=== PATIENT | female | born 1960 | race Asian ===

== ENCOUNTER → 2018-09-13 15:12 | Outpatient (CLI) | payer OTHER, SELFPAY | PROVIDERS: PCP Family Medicine; Visit Provider Family Medicine | DX: Z92.89 Personal history of other medical treatment (principal) | CPT/HCPCS: 77080 ==

== ENCOUNTER → 2018-09-30 09:14 | Outpatient (CLI) | payer OTHER, SELFPAY ==
[2018-09-30 10:55] LABS: Cholesterol 226 mg/dL (140-199); Glucose 93 mg/dL (70-100); HDL Cholesterol 59 mg/dL (40-60); LDL Cholesterol Calculated 150 mg/dL (<100); Triglycerides 85 mg/dL (35-150)
== END ==
PROVIDERS: PCP Family Medicine; Visit Provider Family Medicine
DX: Z13.220 Encounter for screening for lipoid disorders (principal); Z13.1 Encounter for screening for diabetes mellitus
CPT/HCPCS: 36415; 80061; 82947

== ENCOUNTER → 2018-10-07 14:41 | Outpatient (CLI) | payer OTHER, SELFPAY ==
--- NOTE | 2018-10-07 14:43 | DI.MG.S_ITS ---
BILATERAL DIGITAL SCREENING MAMMOGRAM 3D/2D WITH CAD: 10/07/2018 CLINICAL: Routine screening. Comparison is made to exams dated: 02/26/2017 mammogram, 07/21/2015 mammogram, and 11/28/2010 mammogram - [facility]. The tissue of both breasts is heterogeneously dense. This may lower the sensitivity of mammography. Current study was also evaluated with a Computer Aided Detection (CAD) system. No significant masses, calcifications, or other findings are seen in either breast. There has been no significant interval change. IMPRESSION: NEGATIVE There is no mammographic evidence of malignancy. A 1 year screening mammogram is recommended. This exam was interpreted at Station ID: [id number]. NOTE: For mammograms, a report in lay terms will be sent to the patient. Approximately 15% of breast malignancies will not be visualized mammographically. In the management of a palpable breast mass, a negative mammogram must not discourage biopsy of a clinically suspicious lesion. Electronically Signed By: Wu holden/harriet:10/07/2018 17:20:20 letter sent: Normal Exam ACR BI-RADS Category 1: Negative 3341F
== END ==
PROVIDERS: PCP Family Medicine; Visit Provider Family Medicine
DX: Z12.31 Encounter for screening mammogram for malignant neoplasm of breast (principal)
CPT/HCPCS: 77063; 77067

== ENCOUNTER 2018-10-11 06:43 | Day surgery (SDC) | payer OTHER, SELFPAY ==
[2018-10-11] VITALS (7 sets, daily range): BP systolic 101–128; BP diastolic 65–74; PULSE 49–81; RESP 9–16; TEMP 36.3–36.8; O2SAT 88–100; BMI 22.6
--- NOTE | 2018-10-11 | PATH_ITS ---
[facility] Accession Number: [id number] . 01 Material submitted: . PART A: PROBABLE GASTRIC FUNDIC POLYPS PART B: GE JUNCTION BIOPSY . 02 Diagnosis: A. Gastric Polyps, Biopsies: Fragments of fundic gland polyp. No evidence of Helicobacter organisms on H/E stain. Negative for intestinal metaplasia, dysplasia or malignancy. . B. Gastroesophageal Junction, Biopsy: Squamocolumnar junctional mucosa with mild reactive features of reflux esophagitis. Negative for specialized intestinal metaplasia, dysplasia or malignancy. . I/10/14/2018 . 02 Electronically signed: . Michael Murillo MD, PhD, Pathologist NPI- [id number] . 01 Gross description: . Part A: PROBABLE GASTRIC FUNDIC POLYPS: Received in formalin are multiple fragment(s) of carrillo, soft tissue measuring 0.5 x 0.4 x 0.2 cm in aggregate submitted entirely in 1 cassette(s) Part B: GE JUNCTION BIOPSY: Received in formalin are multiple fragment(s) of carrillo, soft tissue measuring 0.8 x 0.3 x 0.2 cm in aggregate submitted entirely in 1 cassette(s) /CKI /CKI . 02 Pathologist provided ICD-10: K31.7, K21.0 . 02 CPT . 191091, 671971 Performed at: 01 [facility] [address], [place], [place] [id number] MD Wu Bergeron MD Phone: [phone] Performed at: 02 [facility] [address] [place], [place] [id number] MD Justyna Rush MD Phone: [phone]
[2018-10-11] MEDS: SODIUM CHLORIDE 0.9% 1,000 ML 200 ML IV (07:32)
--- NOTE | 2018-10-11 08:18 | PM.PREOP ---
Pre-operative Note Interval Note History & Physical reviewed/Exam performed by Physician: Yes Changes to H&P: No H&P completed within 30 days and has changed as indicated here:: History and physical done 1-19 +today ASA Class (for procedural sedation): I
[2018-10-11] MEDS: TETRACAINE/BENZOCAINE/BUTAMBEN (CETACAINE) BOTTLE 1 SPRAY TOP (08:22)
[2018-10-11] MEDS: LIDOCAINE 4% SOLN 50 ML 20 ML TOP (08:23)
[2018-10-11] MEDS: fentaNYL 250 MCG/5 ML INJ IV (08:35)
[2018-10-11] MEDS: MIDAZOLAM 5 MG/5 ML VIAL IV (08:36)
--- NOTE | 2018-10-11 08:51 | PM.OP.ENDO ---
Operative Date/Time/Diagnoses Date of procedure: 10/11/18 Time of procedure: 08:36 Pre-op diagnosis: History of gastric ulcer Post-op diagnosis: same (Ulcer has healed. Possible Ball's esophagus. Gastric fundic polyps.) Procedure & Clinicians Study performed: EGD with cold biopsy Same procedure as scheduled: Yes Indications: History of gastric ulcer Surgeon: Sriram Blela Procedure Notes SCOAP/Timeout: Performed Procedure in detail: The patient had topical anesthetic applied to oropharynx. She was placed in left lateral decubitus position and underwent IV sedation directed by the surgeon consisting of fentanyl and Versed. A bite block was inserted and the scope was advanced through it into the esophagus. The esophagus was unremarkable. GE junction was noted at 36 cm from the incisors. There was inflammation at the GE junction and the GE junction was not smooth. It was rather indistinct. The stomach insufflated well. There were no lesions seen in the body, antrum or at the incisura. The pyloric channel was patent. The duodenum was unremarkable to the 4th part. The scope was brought back into the stomach and retroflexed. The proximal stomach was notable for gastric fundic polyps. Several of these were biopsied to confirm the diagnosis. The scope was straightened and brought out through the esophagus again. Biopsies were taken in the region of the GE junction. No other lesions were seen. The scope was removed and the patient tolerated the procedure well. Scope withdrawal time: Not applicable Sedation minutes: 8 Findings: Ball's esophagus (Possible. Biopsies pending.), polyp (Gastric fundic) and other findings (No evidence of a gastric ulcer.) Specimen(s): other (Polyps and GE junction biopsies) Complications: none Follow up: as needed Disposition: PACU
== END 2018-10-11 10:25 | disposition home or self-care (01) ==
PROVIDERS: PCP Family Medicine; Visit Provider Specialist
PROC: 0DJ08ZZ Inspection of Upper Intestinal Tract, Via Natural or Artificial Opening Endoscopic (ICD-10-PCS; CPT 43235; principal; 2018-10-11 07:45)
DX: K21.0 Gastro-esophageal reflux disease with esophagitis (principal); K31.7 Polyp of stomach and duodenum
CPT/HCPCS: 43239; 99152; J2250; J3010

== ENCOUNTER 2020-01-27 12:34 | Emergency (ER) | payer OTHER, SELFPAY ==
[2020-01-27 12:44] VITALS: BP 162/70; PULSE 59; RESP 12; TEMP 36.8; O2SAT 100
--- NOTE | 2020-01-27 13:16 | ED.BURNSMOKE ---
HPI - Burn/Smoke Inhalation <DELVIS Mckeon - Last Filed: 01/27/20 14:59> General Chief complaint: Burn/Smoke Inhalation Stated complaint: sonal rt arm Time Seen by Provider: 01/27/20 12:57 Mode of arrival: Ambulatory History of Present Illness HPI Narrative: 59yo female presents emergency department for a burn on her right forearm. She states she works at a [employer] and accidentally turned on the stay machine causing steam to sprayed on the underside of her right forearm. She states this happened approximately an hour ago while working. She denies any other injuries, head trauma, fevers, chills, nausea, diarrhea, chest pain, laceration or any other concerns. Related Data Home Medications Medication Instructions Recorded Confirmed multivitamin 1 tab PO DAILY 09/18/18 10/11/18 Previous Rx's Medication Instructions Recorded loperamide 2 mg capsule 2 mg PO Q2-4H PRN #40 cap 11/22/18 typhoid vaccin,live,attenuated 2 See Rx Instructions PO .COMPLEX #4 11/22/18 billion unit capsule,delayed cap release Allergies Allergy/AdvReac Type Severity Reaction Status Date / Time No Known Drug Allergies Allergy Verified 10/11/18 07:41 Review of Systems <DELVIS Mckeon - Last Filed: 01/27/20 14:59> Review of Systems Narrative: REVIEW OF SYSTEMS: GENERAL: Denies fever or chills. HENT: Denies head trauma. CARDIOVASCULAR: Denies syncope. MUSCULOSKELETAL: Denies weakness, or deformities. INTEGUMENTARY: Complains of burn on right arm, see HPI. NEURO: Denies numbness or tingling. Patient History <DELVIS Mckeon - Last Filed: 01/27/20 14:59> Medical History Gastric ulcer (Resolved) Social History marital status: household members: spouse lives independently: Yes caregiver/support person: No housing: house occupational status: employed Smoking Status: Never smoker second hand exposure: No alcohol intake: never substance use type: does not use Smoking Status: Never smoker Substance Use Type: does not use Exam <DELVIS Mckeon - Last Filed: 01/27/20 14:59> Initial Vital Signs Initial Vital Signs: Vital Signs Temperature 98.2 F 01/27/20 12:44 Pulse Rate 59 L 01/27/20 12:44 Respiratory Rate 12 01/27/20 12:44 Blood Pressure 162/70 H 01/27/20 12:44 Pulse Oximetry 100 01/27/20 12:44 PHYSICAL EXAMINATION: GENERAL: Well groomed, alert, and cooperative. Answers questions promptly and appropriately. Vital signs noted. HENT: Normocephalic, atraumatic. RESPIRATORY: Normal respiratory rate, trachea midline, airway patent. No stridor, nasal flaring or accessory muscle use. MUSCULOSKELETAL: Normal gait and coordination. Equal tone and mass bilaterally. Full range of motion of right arm, wrist, hand, and elbow. EXTREMITIES: CMS intact. Moves all extremities. SKIN: Warm, dry, soft, appropriate color for ethnicity. A 13 cm by 6 cm 1st degree burn noted to under side of right forearm, does not involve wrist, hand, or elbow. No blisters, bruising, or lacerations. NEURO: Alert and Oriented X 3. Good coordination. PSYCH: Appropriate affect and mood. <Jay Jay Krueger MD - Last Filed: 01/27/20 19:16> Initial Vital Signs Initial Vital Signs: Vital Signs Temperature 98.2 F 01/27/20 12:44 Pulse Rate 59 L 01/27/20 12:44 Respiratory Rate 12 01/27/20 12:44 Blood Pressure 162/70 H 01/27/20 12:44 Pulse Oximetry 100 01/27/20 12:44 Course <DELVIS Mckeon - Last Filed: 01/27/20 14:59> Course Course Narrative: Bacitracin was placed on wound with dressing via nursing. Orders Ordered: Discontinued Medications Bacitracin (Bacitracin) 2 applic TOP NOW ONE Stop: 01/27/20 13:13 Last Admin: 01/27/20 13:31 Dose: 2 applic Documented by: DAMIÁN Vital Signs Vital signs: Vital Signs - 8 hr 01/27/20 12:44 Temperature 98.2 F Pulse Rate 59 L Respiratory Rate 12 Blood Pressure 162/70 H Pulse Oximetry 100 <Jay Jay Krueger MD - Last Filed: 01/27/20 19:16> Orders Ordered: Discontinued Medications Bacitracin (Bacitracin) 2 applic TOP NOW ONE Stop: 01/27/20 13:13 Last Admin: 01/27/20 13:31 Dose: 2 applic Documented by: DAMIÁN Vital Signs Vital signs: Vital Signs - 8 hr 01/27/20 12:44 Temperature 98.2 F Pulse Rate 59 L Respiratory Rate 12 Blood Pressure 162/70 H Pulse Oximetry 100 MDM - Burn/Smoke Inhalation <Doris GoldsteinDELVIS - Last Filed: 01/27/20 14:59> Medical Records Attestation: I reviewed the patient's medical records. Lab Data Attestation: I reviewed the patient's lab results. MDM Narrative Medical decision making narrative: 59-year-old female presents to emergency department for a first-degree burn she received while working. No concern for infection due to recent event, no surrounding erythema, pus, or discharge. No fevers. Bacitracin was placed with gauze. Patient was extensively educated about signs of infection. She was encouraged to follow up with her primary care provider for further evaluation in the next week. Return precautions given, patient agreed to plan of care verbalized understanding. Discharge Plan Departure Patient Disposition: Home Clinical Impression: Burn of upper extremity Qualifiers: Encounter type: initial encounter Upper extremity location: forearm Laterality: right Burn degree: superficial (1st degree) Qualified Code(s): T22.111A - Burn of first degree of right forearm, initial encounter Discharge Date/Time: 01/27/20 13:31 Instructions: DI for Montes Activity Restrictions/Additional Instructions: Thank you for entrusting me with your care today. As discussed, we have placed bacitracin on your burn. I recommend keeping it covered with with gauze to prevent infection until it is healed. Place bacitracin or Neosporin on the area twice a day. Montes can easily get infected, watch for signs of infection such as redness, pus, severe pain, or fevers--if this occurs please be seen immediately. I recommend following up with your primary care provider in 1 week for further evaluation to ensure your wound is healing. Prescriptions: No Action typhoid vaccin,live,attenuated 2 billion unit capsule,delayed release(DR/EC) See Rx Instructions PO .COMPLEX Qty: 4 RF: 0 loperamide 2 mg capsule 2 mg PO Q2-4H PRN (Reason: loose stool) Qty: 40 RF: 0 multivitamin tablet 1 tab PO DAILY RF: 0 Referrals: Erika Durham MD [Primary Care Provider] -
[2020-01-27] MEDS: BACITRACIN OINT 0.9 GM PCKT 2 APPLIC TOP (13:31)
== END 2020-01-27 13:31 | disposition home or self-care (01) ==
PROVIDERS: Emergency Provider Nurse Practitioner; PCP Family Medicine
DX: T22.111A Burn of first degree of right forearm, initial encounter (principal); X13.1XXA Other contact with steam and other hot vapors, initial encounter; Y99.0 Civilian activity done for income or pay
CPT/HCPCS: 99282

== ENCOUNTER → 2021-02-23 16:18 | Outpatient (CLI) | payer OTHER, SELFPAY ==
--- NOTE | 2021-02-23 16:20 | DI.MG.S_ITS ---
BILATERAL DIGITAL SCREENING MAMMOGRAM 3D/2D WITH CAD: 02/23/2021 CLINICAL: Routine screening. Comparison is made to exams dated: 10/07/2018 mammogram - [facility], 02/26/2017 mammogram, and 07/21/2015 mammogram - [facility]. The tissue of both breasts is heterogeneously dense. This may lower the sensitivity of mammography. Current study was also evaluated with a Computer Aided Detection (CAD) system. There are benign calcifications in both breasts. No significant masses, calcifications, or other findings are seen in either breast. There has been no significant interval change. IMPRESSION: BENIGN There is no mammographic evidence of malignancy. A 1 year screening mammogram is recommended. This exam was interpreted at Station ID: [id number]. NOTE: For mammograms, a report in lay terms will be sent to the patient. Approximately 15% of breast malignancies will not be visualized mammographically. In the management of a palpable breast mass, a negative mammogram must not discourage biopsy of a clinically suspicious lesion. Electronically Signed By: Wu holden/harriet:02/23/2021 16:47:01 letter sent: Normal Exam ACR BI-RADS Category 2: Benign Finding(s) 3342F
== END ==
PROVIDERS: PCP Family Medicine; Referring Provider Family Medicine; Visit Provider Family Medicine
DX: Z12.31 Encounter for screening mammogram for malignant neoplasm of breast (principal)
CPT/HCPCS: 77063; 77067

== ENCOUNTER → 2022-06-29 07:33 | Outpatient (CLI) | payer OTHER, SELFPAY ==
--- NOTE | 2022-06-29 | DI.MG.S_ITS ---
BILATERAL DIGITAL SCREENING MAMMOGRAM 3D/2D WITH CAD: 06/29/2022 CLINICAL: Routine screening. Comparison is made to exams dated: 02/23/2021 mammogram, 10/07/2018 mammogram - [facility], and 02/26/2017 mammogram - [facility]. Both breasts are heterogeneously dense, which may obscure small masses (category c / 51-75% glandular tissue). Current study was also evaluated with a Computer Aided Detection (CAD) system. There are benign calcifications in both breasts. No significant masses, calcifications, or other findings are seen in either breast. There has been no significant interval change. IMPRESSION: BENIGN There is no mammographic evidence of malignancy. A 1 year screening mammogram is recommended. Based on the Tyrer Cuzick model (a risk assessment model) the patient's lifetime risk is 14.0% and her 10 year risk is 5.7%. According to the ACR, ACS, and NCCN guidelines, an annual breast MRI exam along with mammogram is recommended if the patient's lifetime risk is 20% or greater. This exam was interpreted at Station ID: [id number]. NOTE: For mammograms, a report in lay terms will be sent to the patient. Approximately 15% of breast malignancies will not be visualized mammographically. In the management of a palpable breast mass, a negative mammogram must not discourage biopsy of a clinically suspicious lesion. Electronically Signed By: Damion Hutchinson M.D., jr/harriet:06/29/2022 11:20:14 letter sent: Normal Exam ACR BI-RADS Category 2: Benign Finding(s) 3342F
[2022-06-29 08:16] LABS: Add Manual Diff / Slide Review NO; Basophils Absolute Auto 0 /uL (0-100); Basophils Percent Auto 0.7 % (0-2); Eosinophils Absolute Auto 200 /uL (0-450); Eosinophils Percent Auto 4.9 % (2-4); Hematocrit 39.1 % (36-46); Hemoglobin 13.2 g/dL (12.0-16.0); Lymphocytes Absolute Auto 1800 /uL (1100-4500); Lymphocytes Percent Auto 38.9 % (25-40); Mean Corpuscular HGB Conc 33.8 % (30-36); Mean Corpuscular Hemoglobin 31.2 PG (26-34); Mean Corpuscular Volume 92.3 fL (80-100); Monocytes Absolute Auto 300 /uL (0-900); Monocytes Percent Auto 7.4 % (3-14); Neutrophils Absolute Auto 2200 /uL (1500-7000); Neutrophils Percent Auto 48.1 % (50-75); Platelet Count 141 X10^3/uL (150-400); Red Blood Cell Count 4.24 X10^6/uL (4.0-5.2); Red Cell Distribution Width 12.8 % (11.6-14.8); White Blood Cell Count 4.7 X10^3/uL (4.5-11.0)
[2022-06-29 08:32] LABS: Alanine Aminotransferase 14 IU/L (<35); Albumin 4.6 g/dL (3.5-5.0); Albumin Globulin Ratio 1.4 (1.0-2.8); Alkaline Phosphatase 65 U/L (38-126); Aspartate Aminotransferase 24 IU/L (14-36); BUN Creatinine Ratio 22.1 (6-22); Bilirubin Total 0.8 mg/dL (0.2-1.3); Blood Urea Nitrogen 15 mg/dL (7-17); Calcium 9.2 mg/dL (8.4-10.2); Carbon Dioxide 30 mmol/L (22-32); Chloride 103 mmol/L (98-107); Cholesterol 235 mg/dL (140-199); Estimated Glomerular Filt Rate > 60 mL/min (>60); Globulin 3.4 g/dL (1.7-4.1); Glucose 103 mg/dL (80-110); HDL Cholesterol 58 mg/dL (40-60); HEMOLYSIS < 15 (0-50); LDL Cholesterol Calculated 150 mg/dL (<100); Sodium 142 mmol/L (137-145); Triglycerides 136 mg/dL (35-150)
== END ==
PROVIDERS: PCP Family Medicine; Referring Provider Family Medicine; Visit Provider Family Medicine
DX: G45.9 Transient cerebral ischemic attack, unspecified (principal); Z12.31 Encounter for screening mammogram for malignant neoplasm of breast
CPT/HCPCS: 36415; 77063; 77067; 80053; 80061; 85025

== ENCOUNTER → 2023-07-07 14:41 | Outpatient (CLI) | payer OTHER, SELFPAY ==
--- NOTE | 2023-07-07 | DI.MG.S_ITS ---
BILATERAL DIGITAL SCREENING MAMMOGRAM 3D/2D WITH CAD: 07/07/2023 CLINICAL: Routine screening. Comparison is made to exams dated: 06/29/2022 mammogram, 02/23/2021 mammogram, and 10/07/2018 mammogram - [facility]. Both breasts are heterogeneously dense, which may obscure small masses (category c / 51-75% glandular tissue). Current study was also evaluated with a Computer Aided Detection (CAD) system. There are benign calcifications in both breasts. No significant masses, calcifications, or other findings are seen in either breast. There has been no significant interval change. IMPRESSION: BENIGN There is no mammographic evidence of malignancy. A 1 year screening mammogram is recommended. Based on the Tyrer Cuzick model (a risk assessment model) the patient's lifetime risk is 13.6% and her 10 year risk is 5.8%. According to the ACR, ACS, and NCCN guidelines, an annual breast MRI exam along with mammogram is recommended if the patient's lifetime risk is 20% or greater. This exam was interpreted at Station ID: [id number]. NOTE: For mammograms, a report in lay terms will be sent to the patient. Approximately 15% of breast malignancies will not be visualized mammographically. In the management of a palpable breast mass, a negative mammogram must not discourage biopsy of a clinically suspicious lesion. Electronically Signed By: Vitor bustos/harriet:07/09/2023 16:18:26 letter sent: Normal Exam ACR BI-RADS Category 2: Benign Finding(s) 3342F
== END ==
PROVIDERS: PCP Family Medicine; Referring Provider Family Medicine; Visit Provider Family Medicine
DX: I25.10 Atherosclerotic heart disease of native coronary artery without angina pectoris (principal)
CPT/HCPCS: 77063; 77067

== ENCOUNTER → 2023-11-01 10:54 | Outpatient (CLI) | payer OTHER, SELFPAY ==
[2023-11-01 11:36] LABS: Add Manual Diff / Slide Review NO; Basophils Absolute Auto 0 /uL (0-100); Basophils Percent Auto 0.5 % (0-2); Eosinophils Absolute Auto 300 /uL (0-450); Hematocrit 37.3 % (36-46); Hemoglobin 12.6 g/dL (12.0-16.0); Lymphocytes Absolute Auto 1500 /uL (1100-4500); Lymphocytes Percent Auto 33.5 % (25-40); Mean Corpuscular HGB Conc 33.8 % (30-36); Mean Corpuscular Hemoglobin 30.9 PG (26-34); Mean Corpuscular Volume 91.5 fL (80-100); Monocytes Absolute Auto 400 /uL (0-900); Monocytes Percent Auto 8.8 % (3-14); Neutrophils Absolute Auto 2200 /uL (1500-7000); Neutrophils Percent Auto 51.2 % (50-75); Platelet Count 144 X10^3/uL (150-400); Red Blood Cell Count 4.08 X10^6/uL (4.0-5.2); Red Cell Distribution Width 13.4 % (11.6-14.8); White Blood Cell Count 4.3 X10^3/uL (4.5-11.0)
[2023-11-01 12:26] LABS: Cholesterol 238 mg/dL (140-199); Glucose 94 mg/dL (80-110); HDL Cholesterol 45 mg/dL (40-60); LDL Cholesterol Calculated 168 mg/dL (<100); Triglycerides 125 mg/dL (35-150)
== END ==
PROVIDERS: PCP Family Medicine; Referring Provider Family Medicine; Visit Provider Family Medicine
DX: E78.5 Hyperlipidemia, unspecified (principal); Z13.1 Encounter for screening for diabetes mellitus; R73.9 Hyperglycemia, unspecified; D69.6 Thrombocytopenia, unspecified
CPT/HCPCS: 36415; 80061; 82947; 85025

== ENCOUNTER → 2024-04-08 15:34 | Outpatient (CLI) | payer OTHER, SELFPAY ==
[2024-04-08 17:01] LABS: Alanine Aminotransferase 30 IU/L (<35); Albumin 4.4 g/dL (3.5-5.0); Albumin Globulin Ratio 1.3 (1.0-2.8); Alkaline Phosphatase 64 U/L (38-126); Aspartate Aminotransferase 32 IU/L (14-36); BUN Creatinine Ratio 35.5 (6-22); Blood Urea Nitrogen 22 mg/dL (7-17); Calcium 9.3 mg/dL (8.4-10.2); Carbon Dioxide 26 mmol/L (22-32); Chloride 106 mmol/L (98-107); Estimated Glomerular Filt Rate > 60 mL/min (>60); Globulin 3.3 g/dL (1.7-4.1); Glucose 98 mg/dL (80-110); HEMOLYSIS < 15 (0-50); Lipase 113 U/L (23-300); Potassium 4.6 mmol/L (3.4-5.1); Sodium 139 mmol/L (137-145); Total Protein 7.7 g/dL (6.3-8.2)
== END ==
PROVIDERS: PCP Family Medicine; Referring Provider Family Medicine; Visit Provider Family Medicine
DX: R10.9 Unspecified abdominal pain (principal)
CPT/HCPCS: 36415; 80053; 83690

== ENCOUNTER → 2025-05-29 09:32 | Outpatient (CLI) | payer OTHER, SELFPAY ==
--- NOTE | 2025-05-29 09:41 | DI.MG.S_ITS ---
MM screening mammo BI: 05/29/2025. BI-RADS: 1 CLINICAL: 64-year old female for bilateral screening mammogram. Tyrer-Cuzick lifetime risk of 12.0%. No personal or first-degree family history of breast cancer. PRIOR EXAMS 07/07/2023, 06/29/2022, 02/23/2021, 10/07/2018. MAMMOGRAPHY TECHNIQUE: 2D and 3D (tomosynthesis) digital mammographic views obtained, with additional images as needed for full coverage. Current study was also evaluated with a Computer Aided Detection (CAD) system. DENSITY D. The breasts are extremely dense, which lowers the sensitivity of mammography. MAMMOGRAPHY FINDINGS Bilateral: No suspicious mass, asymmetry, microcalcification, or other abnormality seen. IMPRESSION: * No evidence of malignancy. RECOMMENDATIONS Bilateral * Annual screening mammography. OVERALL ASSESSMENT CATEGORY BI-RADS-1: Negative. The [employer] recommends annual screening mammography beginning at age 40 for women with average risk of breast cancer. ELECTRONICALLY SIGNED: Lindsey Zarate M.D. on 05/30/2025 at 12:22:44 AM PT Interpreting Station ID: [id number]
== END ==
LOC: MAMMO 09:40
PROVIDERS: PCP Family Medicine; Referring Provider Family Medicine; Visit Provider Family Medicine
DX: Z12.31 Encounter for screening mammogram for malignant neoplasm of breast (principal); R92.343 Mammographic extreme density, bilateral breasts
CPT/HCPCS: 77063; 77067